=== PATIENT | male | born 1955 | race Native Hawaiian/Other Pacific Islander ===

== ENCOUNTER 2016-08-22 07:18 | Day surgery (SDC) | payer MEDICAID ==
[2016-08-22 08:01] VITALS: BMI 26.6
[2016-08-22] MEDS ORDERED: Propofol 10 mg/ml Inj (20 ML) ONE (08:25)
[2016-08-22] MEDS ORDERED: ePHEDrine 50 mg/ml Inj ONE (08:35)
[2016-08-22 08:54] VITALS: TEMP 97.7; O2SAT 100
[2016-08-22 09:36] VITALS: BP 108/54; PULSE 69; RESP 13
== END 2016-08-22 09:50 | disposition home or self-care (01) ==
LOC: C.ENDO 07:18
PROVIDERS: ATTEND Internal Medicine Gastroenterology
DX: Z12.11 Encounter for screening for malignant neoplasm of colon (principal); D12.0 Benign neoplasm of cecum; D12.3 Benign neoplasm of transverse colon; K64.8 Other hemorrhoids
CPT/HCPCS: 45384; 82948; 88305; J2704

== ENCOUNTER 2018-03-31 13:00 | Emergency (ER) | payer MEDICAID ==
[2018-03-31 13:00] VITALS: BMI 26.6
[2018-03-31 14:09] LABS: URINE BACTERIA MOD (<OCC); URINE BILIRUBIN NEGATIVE (NEGATIVE); URINE BLOOD 2+ (NEGATIVE); URINE CLARITY Hazy (Clear); URINE COLOR Red (YELLOW); URINE GLUCOSE (UA) 1+ mg/dL (Normal); URINE LEUKOCYTE ESTERASE 2+ Leu/uL (Negative); URINE PROTEIN 2+ mg/dL (NEGATIVE); URINE UROBILINOGEN NORMAL mg/dL (0.2-1.0)
[2018-03-31 14:23] LABS: BASO # 0.1 K/uL (0.0-0.2); BASO % 0.7 % (0.0-2.0); EOS % 0.4 % (0.0-4.0); HEMOGLOBIN 13.5 g/dL (12.0-18.0); LYMPH # 1.5 K/uL (1.0-4.3); LYMPH % 14.1 % (20.0-40.0); MEAN CELL VOLUME 94.8 fL (80.0-94.0); MEAN CORPUSCULAR HEMOGLOBIN 32.4 pg (27.0-31.0); MEAN CORPUSCULAR HGB CONC 34.1 g/dL (33.0-37.0); MEAN PLATELET VOLUME 6.9 fL (7.2-11.7); MONO # 0.9 K/uL (0.0-0.8); MONO % 7.9 % (0.0-10.0); NEUT # 8.3 K/uL (1.8-7.0); NEUT % 76.9 % (50.0-75.0); NRBC % 0.1 % (0.0-2.0); RBC 4.17 Mil/uL (4.40-5.90); RED CELL DISTRIBUTION WIDTH 13.1 % (11.5-14.5); WHITE BLOOD COUNT 10.8 K/uL (4.8-10.8)
[2018-03-31 14:37] LABS: ALB/GLOB RATIO 1.4 (1.0-2.1); ALBUMIN 4.7 g/dL (3.5-5.0); CALCIUM 9.5 mg/dl (8.6-10.4)
--- NOTE | 2018-03-31 15:01 | C.PDOC ---
History Of Present Illness 62 years old male with PMHx of prostate cancer s/p prostatectomy/seeding, currently on zytiga, presents to ED with complaints of hematuria that began last night. He reports urine output has been all liquid with no clots. He also rep orts pain of cramping character in left lower abdomen and groin area which is intermittent, non-radiating and sometimes severe. He also complaints of feeling generally weak/lightheaded. Denies fever, chills, chest pain, shortness of breath, vomiting, or diarrhea. PMD: * Shaen Sow Oncologist: * Ian Sarmiento Time Seen by Provider: 03/31/18 13:16 Chief Complaint (Nursing): Male Genitourinary History Per: Patient History/Exam Limitations: no limitations Onset/Duration Of Symptoms: Hrs Current Symptoms Are (Timing): Still Present Quality Of Discomfort: Cramping Alleviating Factors: None Recent travel outside of the [place]: No Past Medical History Reviewed: Historical Data, Nursing Documentation, Vital Signs Vital Signs: Last Vital Signs Temp 98.3 F 03/31/18 13:15 Pulse 98 H 03/31/18 13:15 Resp 20 03/31/18 13:15 BP 152/90 H 03/31/18 13:15 Pulse Ox 98 03/31/18 13:15 - Medical History PMH: Hypercholesterolemia Denies: Chronic Kidney Disease Family History: States: No Known Family Hx - Social History Hx Alcohol Use: Yes Hx Substance Use: No - Immunization History Hx Tetanus Toxoid Vaccination: No Hx Influenza Vaccination: No Hx Pneumococcal Vaccination: No Review Of Systems Except As Marked, All Systems Reviewed And Found Negative. Constitutional: Negative for: Fever Cardiovascular: Negative for: Chest Pain Gastrointestinal: Negative for: Diarrhea Physical Exam - Physical Exam Additional Physical Exam Comments: Constitutional: No acute distress. Urine Cup at bedside grossly bloody with no clots. Head: Normocephalic. Atraumatic. Eyes: PERRL. ENT: Moist mucous membranes. Neck: Supple. Cardiovascular: Regular rate. Radial pulse 2+ bilaterally. Chest: No tenderness. Respiratory: Clear to auscultation bilaterally. GI: Soft. Nontender. Nondistended. Back: No CVA tenderness. Musculoskeletal: No tenderness or swelling of extremities. Skin: No rash. Neurologic: Alert, no focal deficit. ED Course And Treatment - Laboratory Results Result Diagrams: 03/31/18 14:19 03/31/18 14:19 O2 Sat by Pulse Oximetry: 98 (RA) Pulse Ox Interpretation: Normal Medical Decision Making Medical Decision Making: Plan: * Blood work * Urine culture * Urinalysis Progress: Patient had outpatient CT scan done here 4 days ago which I reviewed. It shows prostate/rectal mass adenopathy and new hepatic lesions as compared to CT from previous months ago. Creatinine mildly elevated from previous. Patient went to urinate multiple times, able to urinate still without clots and states urine seems to be clearing. Discussed case with Dr. Machuca, discussed new CT results, states patient will see him in office on Monday and likely change chemotherapy. Antibiotics administered. Dr. Nava informed of case today. Disposition - Disposition Referrals: Ian Machuca MD [Staff Provider] - Disposition: HOME/ ROUTINE Disposition Time: 16:34 Condition: STABLE Prescriptions: Ciprofloxacin [Cipro] 500 mg PO BID #14 tab Instructions: Blood in the Urine (Hematuria) in Adults Forms: [employer] (Spanish) - Clinical Impression Clinical Impression: Hematuria - Scribe Statement The provider has reviewed the documentation as recorded by the Scribe Osiel Mireles All medical record entries made by the Scribe were at my direction and personally dictated by me. I have reviewed the chart and agree that the record accurately reflects my personal performance of the history, physical exam, medi jose decision making, and the department course for this patient. I have also personally directed, reviewed, and agree with the discharge instructions and disposition.
[2018-03-31 15:24] VITALS: O2SAT 98
[2018-03-31 16:29] VITALS: BP 145/86; PULSE 86; RESP 20; TEMP 99
== END 2018-03-31 16:39 | disposition home or self-care (01) ==
LOC: C.ER 13:00
DX: R31.9 Hematuria, unspecified (principal); E78.00 Pure hypercholesterolemia, unspecified; Z85.46 Personal history of malignant neoplasm of prostate

== ENCOUNTER 2018-04-16 10:42 | Outpatient (CLI) | payer MEDICAID | END 2018-04-16 10:43 | disposition home or self-care (01) | LOC: C.PAT 10:42 ==

== ENCOUNTER 2018-04-17 08:28 | Day surgery (SDC) | payer MEDICAID ==
[2018-04-16 10:50] VITALS: BMI 25.7
[~2018-04-17 08:28] MED LIST: HEPARIN-NS 5,000 UNITS/500 ML 5,000 UNIT/500 ML BAG IV ONE; Lidocaine Hydrochloride 10 ML INJ ONE; Lidocaine/Epinephrine 1% 1:100000 10 ML IJ ONE
[2018-04-17] MEDS ORDERED: Midazolam 2 MG/2 ML VIAL ONE (10:02)
[2018-04-17] MEDS ORDERED: Propofol 10 mg/ml Inj (20 ML) ONE (10:02)
[2018-04-17 10:05] VITALS: O2SAT 100
[2018-04-17] MEDS ORDERED: ceFAZolin IV 2 gm in Dextrose 2 GM/50 ML BAG IVPB ONE (10:43)
--- NOTE | 2018-04-17 11:30 | CP.SDSHP ---
Same Day Surgery H & P - History Proposed Procedure: Port placement Pre-Op Diagnosis: Prostate cancer - Allergies Allergies: Allergies No Known Allergies Allergy (Verified 04/16/18 10:49) - Physical Exam Vital Signs: Vital Signs 04/17/18 09:08 Temperature 98.2 F Pulse Rate 81 Respiratory 18 Rate Blood Pressure 156/82 H O2 Sat by Pulse 100 Oximetry Mental Status: Alert & Oriented x3 Neuro: WNL Heart: WNL Lungs: WNL - Impression Impression: Pt with metastatic prostate cancer refered for port placement. Plan port placement right IJV. Informed consent obtained. Pt. Evaluated Today:Candidate for Anesthesia & Procedure: Yes (ASA 3 Malampati 3) - Date & Time Date: 04/17/18 Time: 10:45 Short Stay Discharge - Short Stay Discharge Admitting Diagnosis/Reason for Visit: PROSTATE CANCER Disposition: HOME/ ROUTINE
--- NOTE | 2018-04-17 11:32 | PCM.SURG1 ---
Surgeon's Initial Post Op Note - Surgeon's Notes Surgeon: Gus Reyes MD Shoe Sewing Machine Operator And Tender: NONE Type of Anesthesia: Local Pre-Operative Diagnosis: Prostate cancer Operative Findings: US showed patent right IJV. Post-Operative Diagnosis: Prostate cancer Operation Performed: Port placed right IJV. Tip is in the SVC. Specimen/Specimens Removed: NONE Estimated Blood Loss: EBL {In ML}: 5 Blood Products Given: N/A Drains Used: No Drains Post-Op Condition: Fair Date of Surgery/Procedure: 04/17/18 Time of Surgery/Procedure: 11:25
[2018-04-17] MEDS ORDERED: HYDROmorphone 0.5 mg/0.5 ml ISec IVP PRN (11:40)
[2018-04-17] MEDS ORDERED: Lactated Ringer's 1,000 ML IV SCH (11:45)
[2018-04-17 13:27] VITALS: RESP 16
[2018-04-17 13:28] VITALS: BP 156/80; PULSE 76; TEMP 97.8
--- NOTE | 2018-04-17 16:18 | RAD ---
PROCEDURE: Date of procedure: 04/17/2018 Procedure: 1. Placement of a right IJ port catheter with ultrasound and fluoroscopic guidance, CPT 05856 2. Catheter tip confirmation with spot radiograph in the superior vena cava. Medications: The patient was sedated anesthesiologist along with monitoring, Ancef 1 gm, Lidocaine 1% w Epinephrine Fluoroscopic time: 7.4 Seconds Radiation: 0.62 MGy Blood loss: 5 cc HISTORY: Prostate cancer requiring port for chemotherapy TECHNIQUE: Following informed consent the procedure time-out, patient was placed supine on the interventional table and the right neck and chest were prepped and draped in the usual sterile fashion. Ultrasound showed a compressible right internal jugular vein. After the patient was sedated by the anesthesiologist, the skin anesthetized with 1% lidocaine with epinephrine. Under direct ultrasound guidance, the right internal jugular vein was accessed with micropuncture technique. A guidewire was then advanced under fluoroscopic guidance into the superior vena cava. An image documenting ultrasound guidance for vascular access was permanently saved. The subcutaneous tissue of patient right chest was infiltrated with 1 percent lidocaine with epinephrine. A dermatotomy was made with a 15. Scalpel. The port pocket was then created with blunt dissection using a Jacinta clamp. The port pocket was flushed. A port catheter was then tunneled under the skin and out the venotomy site. The port catheter was flushed, advanced through a peel-away sheath, adjusted for length, and attached to the port the port was flushed and locked with heparin. The port pocket was then closed with absorbable 4-0 Polysorb sutures. Steri-Strips were then applied to the port incision also venotomy site. A sterile dressing was then applied. Final spot radiograph showed the right IJ port catheter with tip of the port catheter in the superior vena cava. A port is functional and ready for use. IMPRESSION: Placement of right IJ port catheter. The tip of the port is in the superior vena cava.
== END 2018-04-17 13:15 | disposition home or self-care (01) ==
LOC: C.SDS 08:28
PROVIDERS: ATTEND Radiology Vascular & Interventional Radiology
DX: C61 Malignant neoplasm of prostate (principal); Z45.2 Encounter for adjustment and management of vascular access device
CPT/HCPCS: 36561; C1788; J0690; J1644; J2250; J2704; J3010; J7040